=== PATIENT | female | born 1995 | race Caucasian/White ===

== ENCOUNTER → 2016-10-11 | Outpatient (CLI) | payer OTHER ==
--- NOTE | 2016-10-11 13:21 | RAD ---
Right breast, 10/11/2016: History: Breast lump A targeted ultrasound exam was performed in the area of palpable concern at the 10:00 location. There are heterogeneous fibroglandular shadows in the breasts. No discrete solid or cystic mass is seen. IMPRESSION: The targeted ultrasound exam of the right breast reveals no abnormality. Clinical surveillance is suggested.
== END | disposition home or self-care (01) ==
LOC: KCIC US 12:27
PROVIDERS: ATTEND Obstetrics & Gynecology
DX: N63 Unspecified lump in breast (principal)
CPT/HCPCS: 76641